=== PATIENT | female | born 1980 | race Caucasian/White ===

== ENCOUNTER 2019-01-29 13:30 | Emergency (ER) | payer BC ==
[~2019-01-29] VITALS: Ht 165.1 cm; Wt 63.5 kg
[2019-01-29 13:35] VITALS: BP_SYST 119
--- NOTE | 2019-01-29 13:48 | NUR ---
Patient to ER bed 08 to gown for evaluation. Side rails up.
--- NOTE | 2019-01-29 13:49 | NUR ---
Patient arrived in the ED c/o burning, cramping when voiding and frequency x 4 days - Currently taking Azo and Levaquin. Patients VS WNL, alert and oriented x4, denied any respiratory distress, speaking in full sentences. Denied any fevers, chills or hematuria. Will continue to monitor. Instructed to notify ED staff if symptoms worsen while waiting for the provider. Patient verbalized understanding.
--- NOTE | 2019-01-29 13:52 | NUR ---
Urine specimen collected and labeled. Dropped off at the lab.
--- NOTE | 2019-01-29 13:56 | NUR ---
ER Dr. Ramirez at bedside examining patient.
[2019-01-29 14:15] LABS: BILIRUBIN,URINE NEGATIVE (NEGATIVE); CLARITY/URINE CLEAR (CLEAR); COLOR,URINE YELLOW (YELLOW); GLUCOSE,URINE NEGATIVE (NEGATIVE); KETONES,URINE NEGATIVE (NEGATIVE); LEUKOCYTE ESTERASE ,URINE NEGATIVE (NEGATIVE); NITRITE, URINE POSITIVE (NEGATIVE); PH,URINE 5.5 (5.0-8.0); PROTEIN URINE NEGATIVE (NEGATIVE)
[2019-01-29] MEDS ORDERED: cefTRIAXone 1 GM in D5W 50 ML IV ONE (14:15)
[2019-01-29] MEDS ORDERED: ONDANSETRON HCL 4 MG/2 ML VIAL IVP ONE (14:15)
[2019-01-29] MEDS ORDERED: KETOROLAC TROMETHAMINE 30 MG VIAL IVP ONE (14:15)
[2019-01-29 14:19] LABS: BLOOD, URINE TRACE (NEGATIVE)
[2019-01-29 14:23] LABS: BACTERIA,URINE FEW /HPF (None Seen); MUCUS,URINE 1+ /LPF (None Seen); RBC,URINE 0-3 /HPF (0-3); WBC,URINE 0-3 /HPF (0-3)
--- NOTE | 2019-01-29 14:40 | NUR ---
# 20 gauge angiocath placed to RAC. Use of asceptic technique. Opsite placed over site. Blood return noted. Blood for lab drawn from site. Flushed with 10 cc of normal saline. No evidence of infiltration noted. Patient tolerated well.
[2019-01-29 14:41] LABS: BASOPHILS % (AUTO) 0.4 % (0.0-2.0); EOSINOPHILS # (AUTO) 0.1 K/uL (0.0-0.4); EOSINOPHILS % (AUTO) 1.9 % (0.0-4.0); HEMATOCRIT 41.7 % (36-48); HEMOGLOBIN 14.3 g/dL (12.0-16.0); LYMPHOCYTES # (AUTO) 1.7 K/uL (1.0-5.5); LYMPHOCYTES % (AUTO) 38.3 % (20.5-51.5); MEAN CORPUSCULAR HEMOGLOBIN 32 pg (27-31); MEAN CORPUSCULAR HGB CONC 34 % (32-36); MEAN CORPUSCULAR VOLUME 93 fL (79.0-98.0); MONOCYTES # (AUTO) 0.3 K/uL (0.0-1.0); MONOCYTES % (AUTO) 7.6 % (1.7-9.3); NEUTROPHILS # (AUTO) 2.3 K/uL (1.8-7.7); NEUTROPHILS % (AUTO) 51.8 % (40.0-70.0); PLATELET COUNT (AUTO) 202 K/uL (130-430); RED CELL DISTRIBUTION WIDTH 12.2 % (9.0-15.0); WHITE BLOOD COUNT (AUTO) 4.4 K/uL (4.8-10.8)
[2019-01-29] MEDS ORDERED: cefTRIAXone 1 GM VIAL ONE (14:45)
[2019-01-29 14:56] LABS: CREATININE 0.85 mg/dL (0.55-1.30); POTASSIUM 3.5 mmol/L (3.5-5.1)
--- NOTE | 2019-01-29 14:56 | NUR ---
Administered Toradol and Zofran via IVP as ordered by Dr. Ramirez. Patient tolerated the medication well. IVPB Rocephine running with NS. Informed patient to notify us if she starts having discomfort at the IV site. Patient verbalized understanding the situation.
[2019-01-29 15:10] LABS: ALBUMIN 3.9 g/dL (3.4-4.8); TOTAL BILIRUBIN 0.2 mg/dL (0.0-1.0)
[2019-01-29 15:56] VITALS: BP_SYST 119
--- NOTE | 2019-01-29 15:59 | NUR ---
Patient given written and verbal discharge instructions and verbalizes understanding. ER MD discussed with patient the results and treatment provided. Patient in stable condition. ID arm band removed. IV catheter removed intact and dressing applied, no active bleeding. Rx of Keflex, diflucan, tramadol and Motrin given. Patient educated on pain management and to follow up with PMD. Pain Scale 2/10 tolerable for patient. Opportunity for questions provided and answered. Medication side effect fact sheet provided.
== END 2019-01-29 15:59 | disposition home or self-care (01) ==
LOC: SED 13:30
DX: N39.0 Urinary tract infection, site not specified (principal); Z88.0 Allergy status to penicillin; Z88.5 Allergy status to narcotic agent; Z88.8 Allergy status to other drugs, medicaments and biological substances
CPT/HCPCS: 36415; 80053; 81000; 83605; 85025; 87040; 87086; 96365; 96375; 99283; J0696; J1885; J2405

== ENCOUNTER 2019-05-09 11:36 | Emergency (ER) | payer BC ==
[~2019-05-09] VITALS: Ht 165.1 cm; Wt 63.5 kg
[2019-05-09 11:40] VITALS: BP_SYST 137
--- NOTE | 2019-05-09 11:40 | NUR ---
Patient triaged and placed in waiting room. VSS and patient appears in no acute distress at this time. Accompanied by SELF, awaiting available bed, and MD notified of need for MSE.
--- NOTE | 2019-05-09 12:47 | NUR ---
TAKEN TO XRAY AND WILL GO TO HALLWAY BED.
--- NOTE | 2019-05-09 13:28 | NUR ---
Patient to ER bed H1 to gown for evaluation. Side rails up.
--- NOTE | 2019-05-09 13:30 | NUR ---
Patient arrived in the ED c/o pain on her right ankle that started last Sunday. She stated she rolled her ankle while she was walking her dog. Denied any chest pain or shortness of breath. Denied any fevers, chills, nausea or vomiting. Patient is alert and oriented x4, respirations even and unlabored, speaking in full sentences and ambulating with a steady gait. VSS, pain level 6/10. Informed of approximate wait time. Instructed to notify ED staff for any changes in condition or worsening of symptoms while waiting to be seen by a provider. Patient verbalized understanding.
--- NOTE | 2019-05-09 13:32 | NUR ---
DR GONZALEZ AT BEDSIDE FOR EVALUATION
--- NOTE | 2019-05-09 13:51 | NUR ---
Patient given written and verbal discharge instructions and verbalizes understanding. ER MD discussed with patient the results and treatment provided. Patient in stable condition. ID arm band removed. Rx of [place] given. Patient educated on pain management and to follow up with PMD. Pain Scale 0/10. Opportunity for questions provided and answered. Medication side effect fact sheet provided.
[2019-05-09 13:52] VITALS: BP_SYST 137
== END 2019-05-09 13:51 | disposition home or self-care (01) ==
LOC: SED 11:36
DX: S93.491A Sprain of other ligament of right ankle, initial encounter (principal); Z88.1 Allergy status to other antibiotic agents; Z88.6 Allergy status to analgesic agent; X58.XXXA Exposure to other specified factors, initial encounter; Y93.01 Activity, walking, marching and hiking; Y92.89 Other specified places as the place of occurrence of the external cause; Y99.8 Other external cause status
CPT/HCPCS: 99283